=== PATIENT | female | born 2000 | race Caucasian/White ===

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

== ENCOUNTER 2021-04-11 09:15 | Emergency (ER) | payer MEDICAID ==
[~2021-04-11] VITALS: Ht 157.5 cm; Wt 56.8 kg
[2021-04-11 09:41] VITALS: BP 136/82
== END 2021-04-11 10:10 | disposition home or self-care (01) ==
LOC: ER 09:16
DX: U07.1 COVID-19 (principal); R43.8 Other disturbances of smell and taste; R51.9 Headache, unspecified; R07.89 Other chest pain; R50.9 Fever, unspecified; G89.29 Other chronic pain; F15.90 Other stimulant use, unspecified, uncomplicated; Z72.89 Other problems related to lifestyle; Z88.1 Allergy status to other antibiotic agents; Z88.8 Allergy status to other drugs, medicaments and biological substances; Z79.899 Other long term (current) drug therapy
CPT/HCPCS: 36415; 99283; U0003; U0005

== ENCOUNTER 2025-06-09 09:46 | Emergency (ER) | payer MEDICAID ==
[~2025-06-09] VITALS: Ht 157.5 cm; Wt 56.5 kg
[2025-06-09 09:57] VITALS: TEMP 98.3
--- NOTE | 2025-06-09 11:32 | Physician Documentation ---
History of Present Illness ~ Chief Complaint: See Chief Complaint Stated Complaint: IUD COMPLICATIONS Time Seen by MD: 11:28 Primary Medical Doctor: ESVIN ROLON IN [facility] HPI This is a 24-year-old female who presents to the emergency department reporting that she has had a copper IUD in place for 5-6 months. Last night, she had intercourse, and has had pain and cramping ever since. She is concerned that the IUD is misplaced. She denies chance of . However, she is amenorrheic, still breast-feeding her . Medication Reconciliation Allergies: Coded Allergies: amoxicillin (Unverified Allergy, Unknown, 06/09/25) sulfamethoxazole (Unverified Allergy, Unknown, 06/09/25) trimethoprim (Unverified Allergy, Unknown, 06/09/25) Scheduled Ibuprofen (Motrin), 400 MG PO TID Phenazopyridine HCl (Pyridium), 1 TAB PO Q8H Miscellaneous Medications Home Med List (No Home Medications), (Reported) Past Medical History Past Medical History: Chronic Pain, *PSYCH* Past Surgical History: no surgical history Alcohol Use: Heavy Drug Use: methamphetamine Lives In: Home Occupation: student Review of Systems ROS As stated above in the HPI, otherwise all systems are reviewed and negative. Physical Exam Vital Signs: Temperature: 98.3, Source: Temporal, Heart Rate: 73, Respiratory Rate: 16, BP: 122/71, Pulse Oximetry: 98, Weight: 56.500 Oxygen Flow Rate: 0 Physical Exam General: Alert, no apparent distress. HEENT: PERRL, EOMI, no injection, moist mucous membranes. Neck: Full range of motion. Respiratory: Lungs clear, no respiratory distress. Chest: No accessory muscle use. Cardiovascular: Regular rate and rhythm, no murmurs. Gastrointestinal: Soft, nontender, nondistended. Bowels sounds present. Extremities: Normal range of motion, no deformity. Neurologic: Oriented x4. Psychiatric: Normal mood and affect. Skin: Normal color, warm and dry. No edema, no ecchymosis. Progress Progress Note 1336: patient elects to leave after UA resulted and before u.s. Results/Orders Results/Orders Orders - UZAIR MARIE PHOTO LAB MANAGER Us Pelvis/With Duplex (06/09/25 12:21) Completed Orders - UZAIR MARIE PHOTO LAB MANAGER Urinalysis, Cult If Indicated (06/09/25 12:47) Vital Signs 06/09/25 06/09/25 09:57 13:41 Temp 98.3 Pulse 73 69 Resp 16 18 B/P (MAP) 122/71 120/76 Pulse Ox 98 99 O2 Flow Rate 0 Laboratory Tests Test 06/09/25 13:00 Urine Specimen Description Non-specified Urine Color Yellow Urine Clarity Clear Urine pH 6.5 Urine Specific [place] 1.025 Urine Protein Negative Urine Glucose (UA) Negative Urine Ketones Negative Urine Occult Blood Negative Urine Nitrite Negative Urine Bilirubin Negative Urine Urobilinogen 0.2 Urine Leukocyte Esterase Negative Urine Culture Indicated Not ind Volume Urine Centrifuged 10 ml Urine Comment Medical Decision Making Additional information obtaine: old records Findings 04/11/21 was seen here for viral symptoms. Urinary Diff Dx:Considerations: Include: Other Genital Diff Dx:Considerations: Include: Other Additional Comment Concerned about pelvic pain/cramping and dysuria after intercourse last night. Ordered limited pelvic u.s. but patient left prior to this being done. UA with no signs of infection. Is to f/u with PCP. Departure Time of Disposition: 13:35 Impression: Primary Impression: IUD surveillance Additional Impression: Dysuria Condition: Stable Discharge Instructions: Dysuria, Pelvic Pain, Female Additional Instructions: No evidence of urinary tract infection with your UA. See your primary care for surveillance of your IUD. Return if worse at any time, such as with fever over 101, or menstrual bleeding with one pad or more per hour. Referrals: NO PRIMARY CARE PROVIDER (PCP) Education Educated: Patient Educated regarding: diagnosis, treatment, prognosis, need for follow up Signature Scribe Signature: x Attestation: The note accurately reflects work and decisions made by me.Uzair Arroyo NP 06/09/25 11:50 UZAIR MARIE NP Jun 09, 2025 11:32
[2025-06-09 13:25] LABS: LEUKOCYTE ESTERASE ,URINE NEGATIVE (Neg); NITRITES, URINE NEGATIVE (Neg); OCCULT BLOOD,URINE NEGATIVE (Neg)
[2025-06-09 13:29] LABS: UA COLLECTION TYPE NON-SPECIFIED
[2025-06-09 13:41] VITALS: BP 120/76; PULSE 69; RESP 18; O2SAT 99
== END 2025-06-09 14:04 | disposition home or self-care (01) ==
LOC: ER 09:47
DX: Z30.431 Encounter for routine checking of intrauterine contraceptive device (principal); R30.0 Dysuria; F15.90 Other stimulant use, unspecified, uncomplicated; F10.90 Alcohol use, unspecified, uncomplicated; Z88.0 Allergy status to penicillin; Z88.1 Allergy status to other antibiotic agents; Z88.2 Allergy status to sulfonamides; Y90.9 Presence of alcohol in blood, level not specified
CPT/HCPCS: 81003; 99283